=== PATIENT | male | born 1960 | race African-American/Black ===

== ENCOUNTER 2016-06-23 01:03 | Emergency (ER) | payer MEDICAID, OTHER ==
[~2016-06-23] VITALS: Ht 170.2 cm; Wt 77.1 kg
[2016-06-23] VITALS (10 sets, daily range): BP systolic 138–170; BP diastolic 83–99
[~2016-06-23 01:03] MED LIST: QUETIAPINE FUMA25 MG ORAL
[2016-06-23 01:38] LABS: BASOPHILS % (AUTO) 1.4 % (0.0-2.0); EOSINOPHILS % (AUTO) 3.3 % (0.0-3.0); LYMPHOCYTES % (AUTO) 31.8 % (20.0-45.0); MEAN CORPUSCULAR HEMOGLOBIN 25.5 PG (27.0-31.0); MEAN CORPUSCULAR HGB CONC 32.2 G/DL (32.0-36.0); MEAN CORPUSCULAR VOLUME 79 FL (80-99); MONOCYTES % (AUTO) 7.4 % (1.0-10.0); NEUTROPHILS % (AUTO) 56.2 % (45.0-75.0); PLATELET COUNT 261 K/UL (150-450); RED BLOOD COUNT 5.51 M/UL (4.70-6.10); RED CELL DISTRIBUTION WIDTH 14.9 % (11.6-14.8); WHITE BLOOD COUNT 8.1 K/UL (4.8-10.8)
[2016-06-23 01:57] LABS: ACETAMINOPHEN < 10 ug/mL (10-30); ALANINE AMINOTRANSFERASE 16 U/L (3-41); ALBUMIN/GLOBULIN RATIO 0.9 (1.0-2.7); ALCOHOL 313 mg/dL; ANION GAP 18 (5-15); ASPARTATE AMINO TRANSFERASE 29 U/L (5-40); CALCIUM 8.9 mg/dL (8.6-10.2); CARBON DIOXIDE 25 mEQ/L (20-30); CHLORIDE 100 mEQ/L (98-107); GLOMERULAR FILTRATION RATE > 60 mL/min (>60); HEMOLYSIS 4; POTASSIUM 3.7 mEQ/L (3.4-4.9); SODIUM 143 mEQ/L (135-145); TOTAL PROTEIN 7.8 g/dL (6.6-8.7)
[2016-06-23] MEDS ORDERED: Thiamine 100mg tab ORAL ONE (02:00)
--- NOTE | 2016-06-23 02:40 | Emergency Room Report ---
History of Present Illness General Chief Complaint: Behavioral Complaint Source: Patient (Arnie Jordan) Present Illness HPI Patient is a 56-year-old male who presented after having increased suicidal thoughts. Patient stated that he had been drinking several 24 ounce beers as well as several shots of alcohol. The patient states that he last ingested alcohol approximately one hour prior to arrival. Patient denied any current complaints other than this. (Arnie Jordan) Allergies: Coded Allergies: No Known Allergies (Unverified , 03/13/14) Patient History Past Medical History: see triage record Reviewed Nursing Documentation: PMH: Agreed, PSxH: Agreed (Arnie Jordan) Nursing Documentation-PMH Hx Hypertension: Yes History Of Psychiatric Problem: Yes - BIPOLAR (Arnie Jordan) Review of Systems All Other Systems: negative except mentioned in HPI (Arnie Jordan) Physical Exam Vital Signs Date Time Temp Pulse Resp B/P Pulse Ox O2 Delivery O2 Flow Rate FiO2 06/23/16 01:06 98.4 103 16 147/91 99 Room Air Sp02 EP Interpretation: reviewed, normal General Appearance: normal inspection, well appearing, no apparent distress, alert, GCS 15, non-toxic Head: atraumatic ENT: normal ENT inspection, hearing grossly normal, normal voice Neck: normal inspection, full range of motion, supple, no bony tend Respiratory: normal inspection, lungs clear, normal breath sounds, no respiratory distress, no retraction, no wheezing Cardiovascular #1: regular rate, rhythm, no edema Gastrointestinal: normal inspection, normal bowel sounds, non tender, soft, no guarding, no hernia Genitourinary: no CVA tenderness Musculoskeletal: normal inspection, back normal, normal range of motion Neurologic: normal inspection, alert, oriented x3, responsive, bag end sewer III-XII nml as tested, other - slurred speech Psychiatric: normal inspection, judgement/insight normal, mood/affect normal Skin: normal inspection, normal color, no rash (Arnie Jordan) Medical Decision Making Diagnostic Impression: Primary Impression: Alcohol intoxication Additional Impressions: Cocaine abuse Behavioral disorder ER Course Patient presented for suicidal thoughts. Differential diagnosis included but was not limited to psychosis, intracranial mass, substance abuse, alcohol withdrawal, overdose. Because of complexity of patient's case laboratory testing and imaging studies were ordered. Patient appears to be moderately intoxicated with alcohol. The patient does not appear to be any threat to himself at this time. The patient was given oral Zyprexa for agitation. The blood alcohol was noted be markedly elevated. The patient will be reevaluated after sober. Labs Test 06/23/16 01:19 06/23/16 02:00 White Blood Count 8.1 K/UL (4.8-10.8) Red Blood Count 5.51 M/UL (4.70-6.10) Hemoglobin 14.0 G/DL (14.2-18.0) Hematocrit 43.5 % (42.0-52.0) Mean Corpuscular Volume 79 FL (80-99) Mean Corpuscular Hemoglobin 25.5 PG (27.0-31.0) Mean Corpuscular Hemoglobin Concent 32.2 G/DL (32.0-36.0) Red Cell Distribution Width 14.9 % (11.6-14.8) Platelet Count 261 K/UL (150-450) Mean Platelet Volume 7.0 FL (6.5-10.1) Neutrophils (%) (Auto) 56.2 % (45.0-75.0) Lymphocytes (%) (Auto) 31.8 % (20.0-45.0) Monocytes (%) (Auto) 7.4 % (1.0-10.0) Eosinophils (%) (Auto) 3.3 % (0.0-3.0) Basophils (%) (Auto) 1.4 % (0.0-2.0) Sodium Level 143 mEQ/L (135-145) Potassium Level 3.7 mEQ/L (3.4-4.9) Chloride Level 100 mEQ/L (98-107) Carbon Dioxide Level 25 mEQ/L (20-30) Anion Gap 18 (5-15) Blood Urea Nitrogen 9 mg/dL (7-23) Creatinine 1.0 mg/dL (0.7-1.2) Estimat Glomerular Filtration Rate > 60 mL/min (>60) Glucose Level 105 mg/dL (74-106) Calcium Level 8.9 mg/dL (8.6-10.2) Total Bilirubin 0.3 mg/dL (0.0-1.2) Aspartate Amino Transf (AST/SGOT) 29 U/L (5-40) Alanine Aminotransferase (ALT/SGPT) 16 U/L (3-41) Alkaline Phosphatase 88 U/L (40-129) Total Protein 7.8 g/dL (6.6-8.7) Albumin 3.8 g/dL (3.5-5.2) Globulin 4.0 g/dL Albumin/Globulin Ratio 0.9 (1.0-2.7) Salicylates Level < 1 mg/dL (10-30) Acetaminophen Level < 10 ug/mL (10-30) Serum Alcohol 313 mg/dL Urine Opiates Screen Negative (NEGATIVE) Urine Barbiturates Screen Negative (NEGATIVE) Phencyclidine (PCP) Screen Negative (NEGATIVE) Urine Amphetamines Screen Negative (NEGATIVE) Urine Benzodiazepines Screen Negative (NEGATIVE) Urine Cocaine Screen Positive (NEGATIVE) Urine Marijuana (THC) Screen Negative (NEGATIVE) (Arnie Jordan) ER Course After a prolonged stay in the emergency room Patient was accepted by a psychiatric facility for further psychiatric care and evaluation Patient remained stable throughout his stay Labs Test 06/23/16 01:19 06/23/16 02:00 06/23/16 13:23 White Blood Count 8.1 K/UL (4.8-10.8) Red Blood Count 5.51 M/UL (4.70-6.10) Hemoglobin 14.0 G/DL (14.2-18.0) Hematocrit 43.5 % (42.0-52.0) Mean Corpuscular Volume 79 FL (80-99) Mean Corpuscular Hemoglobin 25.5 PG (27.0-31.0) Mean Corpuscular Hemoglobin Concent 32.2 G/DL (32.0-36.0) Red Cell Distribution Width 14.9 % (11.6-14.8) Platelet Count 261 K/UL (150-450) Mean Platelet Volume 7.0 FL (6.5-10.1) Neutrophils (%) (Auto) 56.2 % (45.0-75.0) Lymphocytes (%) (Auto) 31.8 % (20.0-45.0) Monocytes (%) (Auto) 7.4 % (1.0-10.0) Eosinophils (%) (Auto) 3.3 % (0.0-3.0) Basophils (%) (Auto) 1.4 % (0.0-2.0) Sodium Level 143 mEQ/L (135-145) Potassium Level 3.7 mEQ/L (3.4-4.9) Chloride Level 100 mEQ/L (98-107) Carbon Dioxide Level 25 mEQ/L (20-30) Anion Gap 18 (5-15) Blood Urea Nitrogen 9 mg/dL (7-23) Creatinine 1.0 mg/dL (0.7-1.2) Estimat Glomerular Filtration Rate > 60 mL/min (>60) Glucose Level 105 mg/dL (74-106) Calcium Level 8.9 mg/dL (8.6-10.2) Total Bilirubin 0.3 mg/dL (0.0-1.2) Aspartate Amino Transf (AST/SGOT) 29 U/L (5-40) Alanine Aminotransferase (ALT/SGPT) 16 U/L (3-41) Alkaline Phosphatase 88 U/L (40-129) Total Protein 7.8 g/dL (6.6-8.7) Albumin 3.8 g/dL (3.5-5.2) Globulin 4.0 g/dL Albumin/Globulin Ratio 0.9 (1.0-2.7) Salicylates Level < 1 mg/dL (10-30) Acetaminophen Level < 10 ug/mL (10-30) Serum Alcohol 313 mg/dL < 10 mg/dL Urine Opiates Screen Negative (NEGATIVE) Urine Barbiturates Screen Negative (NEGATIVE) Phencyclidine (PCP) Screen Negative (NEGATIVE) Urine Amphetamines Screen Negative (NEGATIVE) Urine Benzodiazepines Screen Negative (NEGATIVE) Urine Cocaine Screen Positive (NEGATIVE) Urine Marijuana (THC) Screen Negative (NEGATIVE) (VERONICA MARTINEZ.oJse) Last Vital Signs Date Time Temp Pulse Resp B/P Pulse Ox O2 Delivery O2 Flow Rate FiO2 06/23/16 01:25 98.4 102 16 145/90 99 Room Air Status: improved (Arnie Jordan) Status: improved (VERONICA MARTINEZ D.O.) Disposition: DISC/XFER TO A [facility] Condition: Stable Referrals: [facility],REFERRING (PCP) Arnie Jordan Jun 23, 2016 02:40 VERONICA MARTINEZ D.O. Jun 24, 2016 13:59
[2016-06-24 05:20] VITALS: BP 161/100
[2016-06-24 10:02] VITALS: BP 165/73
[2016-06-24 14:13] VITALS: BP 162/73
[2016-06-24 16:10] VITALS: BP 162/73
== END 2016-06-24 16:11 ==
LOC: EDBD 01:03 → EDUNIT# 01:03 → EMR 01:17 → CANBEDREQ 12:57 → EMR 06-24 16:11
DX: F10.129 Alcohol abuse with intoxication, unspecified (principal); R45.851 Suicidal ideations; F14.10 Cocaine abuse, uncomplicated; F91.9 Conduct disorder, unspecified; I10 Essential (primary) hypertension; F31.9 Bipolar disorder, unspecified
CPT/HCPCS: 36415; 80053; 80300; 80329; 85025; 99283

== ENCOUNTER 2016-11-26 11:03 | Emergency (ER) | payer OTHER ==
[~2016-11-26] VITALS: Ht 172.7 cm; Wt 79.4 kg
[2016-11-26 11:25] VITALS: BP 146/99
[2016-11-26] MEDS ORDERED: QUEtiapine 200mg tab ORAL ONE (12:15)
--- NOTE | 2016-11-26 12:20 | Emergency Room Report ---
History of Present Illness General Chief Complaint: Behavioral Complaint Source: Patient Present Illness HPI The patient is a 56 old male with a history of schizophrenia and bipolar disorder resenting for suicidal ideation. Patient states that he ran out of Cinnamon yesterday and has been having thoughts of suicide. He states that he wants to run in front of a car. He has had these thoughts in the past. He denies any other symptoms at this time. Allergies: Coded Allergies: No Known Allergies (Unverified , 03/13/14) Patient History Past Medical History: psych hx Reviewed Nursing Documentation: PMH: Agreed, PSxH: Agreed Nursing Documentation-PM Past Medical History: No History, Except For Hx Hypertension: Yes History Of Psychiatric Problem: Yes - schizophrenia, bipolar Review of Systems All Other Systems: negative except mentioned in HPI Physical Exam Vital Signs Date Time Temp Pulse Resp B/P Pulse Ox O2 Delivery O2 Flow Rate FiO2 11/26/16 11:07 98.1 90 18 149/105 98 Room Air Sp02 EP Interpretation: reviewed, normal General Appearance: no apparent distress, alert, GCS 15, non-toxic Head: normocephalic, atraumatic Eyes: bilateral eye PERRL, bilateral eye normal inspection ENT: hearing grossly normal, normal pharynx, no angioedema, normal voice Neck: full range of motion, supple/symm/no masses Respiratory: chest non-tender, lungs clear, normal breath sounds, speaking full sentences Cardiovascular #1: regular rate, rhythm, no edema Gastrointestinal: normal bowel sounds, non tender, soft, non-distended, no guarding, no rebound Musculoskeletal: back normal, gait/station normal, normal range of motion, non- tender Neurologic: alert, oriented x3, responsive, motor strength/tone normal, sensory intact, speech normal Psychiatric: judgement/insight normal, memory normal, mood/affect normal Skin: other - scars on bilat forearms Lymphatic: no adenopathy Medical Decision Making PA Attestation Dr. Zapata is my supervising physician. Patient management was discussed with my supervising physician Diagnostic Impression: Primary Impression: Schizophrenia Qualified Codes: F20.9 - Schizophrenia, unspecified Additional Impression: Bipolar disorder Qualified Codes: F31.9 - Bipolar disorder, unspecified ER Course The patient is a 56 old male with a history of schizophrenia and bipolar disorder resenting for suicidal ideation Differential diagnoses considered but not limited to suicidal ideation, homicidal ideation, depression, psychosis, among others PE: HTN. otherwise vitals WNL. NAD Resting in bed. A&Ox4. RRR. Lungs CTA bilat Abd is soft and non tender. There are scars of bilat forearms. The patient is asking for a hot meal which was provided. All blood work unremarkable. pt is medically cleared. Dr. Jameson (psychiatry) has arrived in the ER and has evaluated the patient. He is deemed to not be a danger to himself. The patient will be IL'ed in stable condition and is given a refill of Seroquel. He needs to FU with psychiatry as soon as possible Laboratory Tests Test 11/26/16 12:30 White Blood Count 9.3 K/UL (4.8-10.8) Red Blood Count 5.77 M/UL (4.70-6.10) Hemoglobin 14.1 G/DL (14.2-18.0) L Hematocrit 46.0 % (42.0-52.0) Mean Corpuscular Volume 80 FL (80-99) Mean Corpuscular Hemoglobin 24.5 PG (27.0-31.0) L Mean Corpuscular Hemoglobin Concent 30.7 G/DL (32.0-36.0) L Red Cell Distribution Width 14.0 % (11.6-14.8) Platelet Count 297 K/UL (150-450) Mean Platelet Volume 8.0 FL (6.5-10.1) Neutrophils (%) (Auto) 66.9 % (45.0-75.0) Lymphocytes (%) (Auto) 22.6 % (20.0-45.0) Monocytes (%) (Auto) 6.9 % (1.0-10.0) Eosinophils (%) (Auto) 1.7 % (0.0-3.0) Basophils (%) (Auto) 1.8 % (0.0-2.0) Sodium Level 136 mEQ/L (135-145) Potassium Level 3.9 mEQ/L (3.4-4.9) Chloride Level 100 mEQ/L (98-107) Carbon Dioxide Level 26 mEQ/L (20-30) Anion Gap 10 (5-15) Blood Urea Nitrogen 8 mg/dL (7-23) Creatinine 0.8 mg/dL (0.7-1.2) Estimate Glomerular Filtration Rate > 60 mL/min (>60) Glucose Level 83 mg/dL (74-106) Calcium Level 9.1 mg/dL (8.6-10.2) Total Bilirubin 0.5 mg/dL (0.0-1.2) Aspartate Amino Transferase (AST) 12 U/L (5-40) Alanine Aminotransferase (ALT) 10 U/L (3-41) Alkaline Phosphatase 71 U/L (40-129) Total Protein 7.3 g/dL (6.6-8.7) Albumin 3.7 g/dL (3.5-5.2) Globulin 3.6 g/dL Albumin/Globulin Ratio 1.0 (1.0-2.7) Salicylates Level < 1 mg/dL (10-30) L Urine Opiates Screen Negative (NEGATIVE) Acetaminophen Level < 10 ug/mL (10-30) L Urine Barbiturates Screen Negative (NEGATIVE) Phencyclidine (PCP) Screen Negative (NEGATIVE) Urine Amphetamines Screen Negative (NEGATIVE) Urine Benzodiazepines Screen Negative (NEGATIVE) Urine Cocaine Screen Negative (NEGATIVE) Urine Marijuana (THC) Screen Negative (NEGATIVE) Serum Alcohol < 10 mg/dL Lab Results Impression All unremarkable Last Vital Signs Date Time Temp Pulse Resp B/P Pulse Ox O2 Delivery O2 Flow Rate FiO2 11/26/16 11:25 98.2 87 17 146/99 98 Room Air Status: improved Disposition: HOME, SELF-CARE Condition: Stable Scripts Quetiapine Fumarate (SEROQUEL) 300 Mg Tablet 300 MG ORAL DAILY, #30 TAB Prov: GARRETT CHEN 11/26/16 Referrals: [facility],REFERRING (PCP) GARRETT CHEN Nov 26, 2016 12:20
[2016-11-26 12:58] LABS: BASOPHILS % (AUTO) 1.8 % (0.0-2.0); EOSINOPHILS % (AUTO) 1.7 % (0.0-3.0); LYMPHOCYTES % (AUTO) 22.6 % (20.0-45.0); MEAN CORPUSCULAR HEMOGLOBIN 24.5 PG (27.0-31.0); MEAN CORPUSCULAR HGB CONC 30.7 G/DL (32.0-36.0); MEAN CORPUSCULAR VOLUME 80 FL (80-99); MONOCYTES % (AUTO) 6.9 % (1.0-10.0); NEUTROPHILS % (AUTO) 66.9 % (45.0-75.0); PLATELET COUNT 297 K/UL (150-450); RED BLOOD COUNT 5.77 M/UL (4.70-6.10); WHITE BLOOD COUNT 9.3 K/UL (4.8-10.8)
[2016-11-26 13:08] LABS: ACETAMINOPHEN < 10 ug/mL (10-30); ALANINE AMINOTRANSFERASE 10 U/L (3-41); ALCOHOL < 10 mg/dL; ANION GAP 10 (5-15); ASPARTATE AMINO TRANSFERASE 12 U/L (5-40); CALCIUM 9.1 mg/dL (8.6-10.2); CARBON DIOXIDE 26 mEQ/L (20-30); CHLORIDE 100 mEQ/L (98-107); CREATININE 0.8 mg/dL (0.7-1.2); GLOMERULAR FILTRATION RATE > 60 mL/min (>60); HEMOLYSIS 9; POTASSIUM 3.9 mEQ/L (3.4-4.9); SODIUM 136 mEQ/L (135-145); TOTAL PROTEIN 7.3 g/dL (6.6-8.7)
[2016-11-26] MEDS ORDERED: SEROQUEL300 MG ORAL (13:40)
--- NOTE | 2016-11-26 14:18 | Consultation ---
History of Present Illness General Chief Complaint: Behavioral Complaint Present Illness HPI 56 old male with a history of schizophrenia and bipolar disorder came to er with suicidal ideation. Patient states that he ran out of Seroquel yesterday and has been having thoughts of suicide. when I entered the room he was surfing internet. The pt was focused on his elbow wound and housing issue. the pt reluctant to go to the housing that our sw found for him. the pt c/o depressive sxs however his affect is full range. he is not anxious. He stopped using alcohol 2 weeks ago. He stated to me that he still has his psych meds however told er doc he ran out of seroquel yesterday. He is not having psychotic sxs. his daughter is supportive. no recent loss/break up Allergies: Coded Allergies: No Known Allergies (Unverified , 03/13/14) Medication History Scheduled Quetiapine Fumarate (Seroquel), 300 MG ORAL DAILY Quetiapine Fumarate* (Seroquel*), 25 MG ORAL DAILY, (Reported) Patient History History Provided By: Patient, Medical Record, PMD Healthcare decision maker Resuscitation status Advanced Directive on File Family History Family History: (1) Behavioral change (2) Medical clearance for psychiatric admission (3) Schizophrenia (4) Bipolar disorder Review of Systems Psychiatric: Reports: SI, prior hx Physical Exam General Appearance: no apparent distress, alert Neurologic: alert, oriented x 3, responsive, normal mood/affect Last 24 Hour Vital Signs Date Time Temp Pulse Resp B/P Pulse Ox O2 Delivery O2 Flow Rate FiO2 11/26/16 11:25 98.2 87 17 146/99 98 Room Air 11/26/16 11:07 98.1 90 18 149/105 98 Room Air Laboratory Tests Test 11/26/16 12:30 White Blood Count 9.3 K/UL (4.8-10.8) Red Blood Count 5.77 M/UL (4.70-6.10) Hemoglobin 14.1 G/DL (14.2-18.0) L Hematocrit 46.0 % (42.0-52.0) Mean Corpuscular Volume 80 FL (80-99) Mean Corpuscular Hemoglobin 24.5 PG (27.0-31.0) L Mean Corpuscular Hemoglobin Concent 30.7 G/DL (32.0-36.0) L Red Cell Distribution Width 14.0 % (11.6-14.8) Platelet Count 297 K/UL (150-450) Mean Platelet Volume 8.0 FL (6.5-10.1) Neutrophils (%) (Auto) 66.9 % (45.0-75.0) Lymphocytes (%) (Auto) 22.6 % (20.0-45.0) Monocytes (%) (Auto) 6.9 % (1.0-10.0) Eosinophils (%) (Auto) 1.7 % (0.0-3.0) Basophils (%) (Auto) 1.8 % (0.0-2.0) Sodium Level 136 mEQ/L (135-145) Potassium Level 3.9 mEQ/L (3.4-4.9) Chloride Level 100 mEQ/L (98-107) Carbon Dioxide Level 26 mEQ/L (20-30) Anion Gap 10 (5-15) Blood Urea Nitrogen 8 mg/dL (7-23) Creatinine 0.8 mg/dL (0.7-1.2) Estimat Glomerular Filtration Rate > 60 mL/min (>60) Glucose Level 83 mg/dL (74-106) Calcium Level 9.1 mg/dL (8.6-10.2) Total Bilirubin 0.5 mg/dL (0.0-1.2) Aspartate Amino Transf (AST/SGOT) 12 U/L (5-40) Alanine Aminotransferase (ALT/SGPT) 10 U/L (3-41) Alkaline Phosphatase 71 U/L (40-129) Total Protein 7.3 g/dL (6.6-8.7) Albumin 3.7 g/dL (3.5-5.2) Globulin 3.6 g/dL Albumin/Globulin Ratio 1.0 (1.0-2.7) Salicylates Level < 1 mg/dL (10-30) L Urine Opiates Screen Negative (NEGATIVE) Acetaminophen Level < 10 ug/mL (10-30) L Urine Barbiturates Screen Negative (NEGATIVE) Phencyclidine (PCP) Screen Negative (NEGATIVE) Urine Amphetamines Screen Negative (NEGATIVE) Urine Benzodiazepines Screen Negative (NEGATIVE) Urine Cocaine Screen Negative (NEGATIVE) Urine Marijuana (THC) Screen Negative (NEGATIVE) Serum Alcohol < 10 mg/dL Height (Feet): 5 Height (Inches): 8.00 Weight (Pounds): 175 Assessment/Plan Status: doing well, stable Assessment/Plan the pt is not at imminent dts/tdo. he is focused on his elbow wound, usually a person with si would not care about his wound and would appear stressed out/ anxious/depressed. The pt is not at imminent dts and doesn't meet the criteria for 5150 or psych galvin. Ranjana Jameson M.D. Nov 26, 2016 14:18
--- NOTE | 2016-11-26 14:36 | Consultation ---
History of Present Illness General Chief Complaint: Behavioral Complaint Present Illness HPI 56 old male with a history of schizophrenia and bipolar disorder resenting for suicidal ideation. the pt asked if he could order take outs [facility] [place]. the pt didn't elaborate when I was asking about si, he stated that he goes to [facility]. he called the intake and "Gale told me to go to [place] and have them call us. he said, Gale said I must be suicidal to get transferred." the pt was uncooperative and was asking for "warm meal". His affect was not anxious or depressed and he didn't endorse psychotic or manic sxs. he denied using drugs or alcohol. Allergies: Coded Allergies: No Known Allergies (Unverified , 03/13/14) Medication History Scheduled Quetiapine Fumarate (Seroquel), 300 MG ORAL DAILY Quetiapine Fumarate* (Seroquel*), 25 MG ORAL DAILY, (Reported) Patient History History Provided By: Patient, Medical Record, PMD Healthcare decision maker Resuscitation status Advanced Directive on File Review of Systems Psychiatric: Reports: SI, prior hx All Other Systems: negative except mentioned in HPI Physical Exam General Appearance: no apparent distress, alert Neurologic: alert, oriented x 3, responsive, normal mood/affect Last 24 Hour Vital Signs Date Time Temp Pulse Resp B/P Pulse Ox O2 Delivery O2 Flow Rate FiO2 11/26/16 11:25 98.2 87 17 146/99 98 Room Air 11/26/16 11:07 98.1 90 18 149/105 98 Room Air Laboratory Tests Test 11/26/16 12:30 White Blood Count 9.3 K/UL (4.8-10.8) Red Blood Count 5.77 M/UL (4.70-6.10) Hemoglobin 14.1 G/DL (14.2-18.0) L Hematocrit 46.0 % (42.0-52.0) Mean Corpuscular Volume 80 FL (80-99) Mean Corpuscular Hemoglobin 24.5 PG (27.0-31.0) L Mean Corpuscular Hemoglobin Concent 30.7 G/DL (32.0-36.0) L Red Cell Distribution Width 14.0 % (11.6-14.8) Platelet Count 297 K/UL (150-450) Mean Platelet Volume 8.0 FL (6.5-10.1) Neutrophils (%) (Auto) 66.9 % (45.0-75.0) Lymphocytes (%) (Auto) 22.6 % (20.0-45.0) Monocytes (%) (Auto) 6.9 % (1.0-10.0) Eosinophils (%) (Auto) 1.7 % (0.0-3.0) Basophils (%) (Auto) 1.8 % (0.0-2.0) Sodium Level 136 mEQ/L (135-145) Potassium Level 3.9 mEQ/L (3.4-4.9) Chloride Level 100 mEQ/L (98-107) Carbon Dioxide Level 26 mEQ/L (20-30) Anion Gap 10 (5-15) Blood Urea Nitrogen 8 mg/dL (7-23) Creatinine 0.8 mg/dL (0.7-1.2) Estimat Glomerular Filtration Rate > 60 mL/min (>60) Glucose Level 83 mg/dL (74-106) Calcium Level 9.1 mg/dL (8.6-10.2) Total Bilirubin 0.5 mg/dL (0.0-1.2) Aspartate Amino Transf (AST/SGOT) 12 U/L (5-40) Alanine Aminotransferase (ALT/SGPT) 10 U/L (3-41) Alkaline Phosphatase 71 U/L (40-129) Total Protein 7.3 g/dL (6.6-8.7) Albumin 3.7 g/dL (3.5-5.2) Globulin 3.6 g/dL Albumin/Globulin Ratio 1.0 (1.0-2.7) Salicylates Level < 1 mg/dL (10-30) L Urine Opiates Screen Negative (NEGATIVE) Acetaminophen Level < 10 ug/mL (10-30) L Urine Barbiturates Screen Negative (NEGATIVE) Phencyclidine (PCP) Screen Negative (NEGATIVE) Urine Amphetamines Screen Negative (NEGATIVE) Urine Benzodiazepines Screen Negative (NEGATIVE) Urine Cocaine Screen Negative (NEGATIVE) Urine Marijuana (THC) Screen Negative (NEGATIVE) Serum Alcohol < 10 mg/dL Height (Feet): 5 Height (Inches): 8.00 Weight (Pounds): 175 Assessment/Plan Assessment/Plan the pt is not at imminent dts/tdo. he is focused on "warm food" , he didn't appear anxious/depressed and would get irritable when I was asking questions. the pt also refused housing found by our sw. The pt is not at imminent dts and doesn't meet the criteria for 5150 or psych galvin. Ranjana Jameson M.D. Nov 26, 2016 14:36
[2016-11-26 14:57] VITALS: BP_SYST 141; BP_SYST 146; BP_DIAS 96; BP_DIAS 99
--- NOTE | 2016-11-28 16:52 | Cardiology Report ---
APPROVED REPORT EKG Measurement Heart [id number] Sinus rhythm with 1st degree AV block Otherwise normal ECG
== END 2016-11-26 14:59 | disposition home or self-care (01) ==
LOC: EMR 11:45
DX: F20.9 Schizophrenia, unspecified (principal); F31.9 Bipolar disorder, unspecified; I10 Essential (primary) hypertension
CPT/HCPCS: 36415; 80053; 80300; 80329; 85025; 93005; 99283

== ENCOUNTER 2017-07-06 00:57 | Emergency (ER) | payer OTHER ==
[~2017-07-06] VITALS: Ht 170.2 cm; Wt 86.2 kg
[~2017-07-06 00:57] MED LIST changes: +SEROQUEL300 MG ORAL
[2017-07-06] MEDS ORDERED: QUETIAPINE FUMA25 MG ORAL (01:01)
[2017-07-06 01:07] VITALS: BP 150/90
--- NOTE | 2017-07-06 01:43 | Emergency Room Report ---
History of Present Illness General Chief Complaint: Dizziness Source: Patient, Medical Record, EMS Present Illness HPI This 57-year-old male who has a psychiatric history but noncompliance with his medication. He has also has history of alcohol abuse. He [address] because he said he felt dizzy. He said his been ongoing problem for 4 months. Denied suicidal thought homicidal thought. Said he was drinking alcohol but no drug use. Positive for cocaine in the past. He said that he had falling out 4 times her ready but unknown when this happened. Said his car once yesterday. Denies any fever chills denies any palpitation. No other complaint. Allergies: Coded Allergies: No Known Allergies (Unverified , 03/13/14) Patient History Past Medical History: see triage record, old chart reviewed, psych hx Past Surgical History: none Pertinent Family History: none Social History: Reports: alcohol use Immunizations: other Reviewed Nursing Documentation: PMH: Agreed, PSxH: Agreed Nursing Documentation-PMH Hx Hypertension: Yes Review of Systems Eye: Denies: eye pain, blurred vision ENT: Denies: ear pain, nose congestion, throat swelling Respiratory: Denies: cough, shortness of breath Cardiovascular: Denies: chest pain, palpitations Gastrointestinal: Denies: abdominal pain, diarrhea, nausea, vomiting Musculoskeletal: Denies: back pain, joint pain Skin: Denies: rash Neurological: Denies: headache, numbness Endocrine: Denies: increased thirst, increased urine Hematologic/Lymphatic: Denies: easy bruising All Other Systems: negative except mentioned in HPI Physical Exam Vital Signs Date Time Temp Pulse Resp B/P (MAP) Pulse Ox O2 Delivery O2 Flow Rate FiO2 07/06/17 00:56 97.5 73 18 150/93 98 Room Air 97.5 vitals are high blood pressure Sp02 EP Interpretation: reviewed, normal General Appearance: well appearing, no apparent distress, alert, other - Intoxicated Head: normocephalic, atraumatic Eyes: bilateral eye PERRL, bilateral eye EOMI ENT: hearing grossly normal, normal pharynx Neck: full range of motion, supple, no meningismus Respiratory: chest non-tender, lungs clear, normal breath sounds Cardiovascular #1: regular rate, rhythm, no murmur Gastrointestinal: normal bowel sounds, non tender, no mass, no organomegaly, no bruit, non-distended Musculoskeletal: back normal, normal range of motion Psychiatric: mood/affect normal Skin: warm/dry Medical Decision Making Diagnostic Impression: Primary Impression: Dizziness Additional Impression: Alcohol intoxication Qualified Codes: F10.920 - Alcohol use, unspecified with intoxication, uncomplicated ER Course Patient presents with dizziness and "falling out." He is no trauma. CT scan negative. Most likely due to alcohol intoxication. His heart rate and rhythm has been normal since his been here. Will discharge once he is more clinically sober. Last Vital Signs Date Time Temp Pulse Resp B/P (MAP) Pulse Ox O2 Delivery O2 Flow Rate FiO2 07/06/17 01:07 97.5 83 16 150/90 99 Room Air 97.5 Status: improved Disposition: HOME, SELF-CARE Condition: Stable Additional Instructions: Stop using alcohol and drugs. Followup with your Dr. in 7 days. Go to rehabilitation. Return if worse. SHANTA SCRUGGS M.D. Jul 06, 2017 01:43
[2017-07-06 04:43] VITALS: BP 118/75
[2017-07-06 05:35] VITALS: BP 118/75
--- NOTE | 2017-07-06 07:55 | Diagnostic Imaging Report ---
Indication: Dizziness Technique: Continuous helical CT scanning of the head was performed without intravenous contrast material. Axial and coronal 5 mm sections were generated. Dose: Total Dose Length Product - DLP [address] Dose Index - CTDIvol(s) 70.38 mGy. Automated exposure control was utilized for dose reduction. Comparison: None Findings: There is mild prominence of cortical sulci. Ventricles are normal. There is no shift of midline structures. No abnormal extra-axial fluid collections are noted. There is no evidence of intracerebral bleeding. No other abnormal high or low density areas are noted within the brain. There is some opacification of ethmoid sinuses. Polyp is seen in the left maxillary sinus. Impression: Minimal atrophy. Left maxillary sinus because retention cyst or polyp. Minimal mucoperiosteal thickening in the ethmoid sinuses. No acute intracranial abnormality. The above report is concordant with preliminary reading by [employer] . The CT scanner at [facility] is accredited by the [employer] and the scans are performed using protocols designed to limit radiation exposure to as low as reasonably achievable to attain images of sufficient resolution adequate for diagnostic evaluation.
== END 2017-07-06 05:35 | disposition home or self-care (01) ==
LOC: EDBD 00:57 → EMR 03:19
DX: R42 Dizziness and giddiness (principal); F10.129 Alcohol abuse with intoxication, unspecified; I10 Essential (primary) hypertension
CPT/HCPCS: 70450; 99284

== ENCOUNTER 2018-06-14 00:32 | Emergency (ER) | payer OTHER ==
[~2018-06-14] VITALS: Ht 170.2 cm; Wt 81.6 kg
[2018-06-14 00:49] VITALS: BP 148/96
[2018-06-14 01:23] LABS: BASOPHILS % (AUTO) 1.8 % (0.0-2.0); HEMATOCRIT 40.4 % (42.0-52.0); HEMOGLOBIN 13.1 G/DL (14.2-18.0); LYMPHOCYTES % (AUTO) 33.6 % (20.0-45.0); MEAN CORPUSCULAR VOLUME 80 FL (80-99); NEUTROPHILS % (AUTO) 52.7 % (45.0-75.0); PLATELET COUNT 170 K/UL (150-450); RED BLOOD COUNT 5.07 M/UL (4.70-6.10); RED CELL DISTRIBUTION WIDTH 16.4 % (11.6-14.8); WHITE BLOOD COUNT 6.7 K/UL (4.8-10.8)
[2018-06-14 01:37] LABS: ALANINE AMINOTRANSFERASE 48 U/L (12-78); ALBUMIN 3.4 G/DL (3.4-5.0); ALBUMIN/GLOBULIN RATIO 0.8 (1.0-2.7); ALKALINE PHOSPHATASE 86 U/L (46-116); ANION GAP 11 mmol/L (5-15); ASPARTATE AMINO TRANSFERASE 69 U/L (15-37); BILIRUBIN,TOTAL 0.9 MG/DL (0.2-1.0); BLOOD UREA NITROGEN 6 mg/dL (7-18); CALCIUM 8.4 MG/DL (8.5-10.1); CARBON DIOXIDE 27 MMOL/L (21-32); CHLORIDE 104 MMOL/L (98-107); CREATININE 0.9 MG/DL (0.55-1.30); POTASSIUM 3.6 MMOL/L (3.5-5.1); SODIUM 142 MMOL/L (136-145)
[2018-06-14] MEDS ORDERED: SEROQUEL300 MG ORAL (03:40)
--- NOTE | 2018-06-14 03:41 | Emergency Room Report ---
History of Present Illness General Chief Complaint: Behavioral Complaint Source: Patient, Medical Record, EMS Present Illness HPI Is a 58-year-old male with a history hypertension and alcohol abuse. He presents with chief complaint of feeling depressed and suicidal. No particular plan. He denies any nausea vomiting. Miss to drinking tonight. Denies any drug use. Said that he called EMS because he had chest pain. Then he had abdominal pain. Then complaining of being suicidal. Said that he is out of his Seroquel the last 3 days. Allergies: Coded Allergies: No Known Allergies (Unverified , 03/13/14) Patient History Past Medical History: see triage record, old chart reviewed, HTN Past Surgical History: other Pertinent Family History: none Social History: Reports: alcohol use; Denies: smoking Immunizations: other Reviewed Nursing Documentation: PMH: Agreed; PSxH: Agreed Nursing Documentation-PMH Hx Hypertension: Yes Review of Systems Eye: Denies: eye pain, blurred vision ENT: Denies: ear pain, nose congestion, throat swelling Respiratory: Denies: cough, shortness of breath Cardiovascular: Denies: chest pain, palpitations Gastrointestinal: Denies: abdominal pain, diarrhea, nausea, vomiting Musculoskeletal: Denies: back pain, joint pain Skin: Denies: rash Neurological: Denies: headache, numbness Endocrine: Denies: increased thirst, increased urine Hematologic/Lymphatic: Denies: easy bruising All Other Systems: negative except mentioned in HPI Physical Exam Vital Signs Date Time Temp Pulse Resp B/P (MAP) Pulse Ox O2 Delivery O2 Flow Rate FiO2 06/14/18 00:35 98.1 84 16 148/96 98 Room Air vitals normal Sp02 EP Interpretation: reviewed, normal General Appearance: well appearing, no apparent distress, alert Head: normocephalic, atraumatic Eyes: bilateral eye PERRL, bilateral eye EOMI ENT: hearing grossly normal, normal pharynx Neck: full range of motion, supple, no meningismus Respiratory: chest non-tender, lungs clear, normal breath sounds Cardiovascular #1: regular rate, rhythm, no murmur Gastrointestinal: normal bowel sounds, non tender, no mass, no organomegaly, no bruit, non-distended Musculoskeletal: back normal, gait/station normal, normal range of motion Psychiatric: mood/affect normal Skin: warm/dry Medical Decision Making Diagnostic Impression: Primary Impression: Alcohol intoxication Qualified Codes: F10.920 - Alcohol use, unspecified with intoxication, uncomplicated Additional Impression: Suicidal ideations ER Course Patient presents with suicidal radiation. Patient laughing and talkative here in the ER. He has a very high alcohol level. No drug use. Patient now sleep. Will reassess in the morning. It is not suicidal, we'll discharge home with his Seroquel. Patient now awake. No longer suicidal. Not homeless. We'll discharge home. Last Vital Signs Date Time Temp Pulse Resp B/P (MAP) Pulse Ox O2 Delivery O2 Flow Rate FiO2 06/14/18 00:49 98.1 78 16 148/96 98 Room Air Status: improved Disposition: HOME, SELF-CARE Condition: Stable Scripts Quetiapine Fumarate (SEROQUEL) 300 Mg Tablet 300 MG ORAL TWICE A DAY, #60 TAB Prov: Hima Larose MD 06/14/18 Referrals: NON PHYSICIAN (PCP) Additional Instructions: Abstain from alcohol. Go to rehabilitation. Follow-up with your psychiatrist on Saturday. Return if worse. Hima Larose MD Jun 14, 2018 03:41
[2018-06-14 06:59] VITALS: BP 116/90
== END 2018-06-14 07:02 | disposition home or self-care (01) ==
LOC: EDBD 00:32 → EDUNIT# 00:32 → EMR 01:34
DX: R45.851 Suicidal ideations (principal); F10.920 Alcohol use, unspecified with intoxication, uncomplicated; F32.9 Major depressive disorder, single episode, unspecified; I10 Essential (primary) hypertension
CPT/HCPCS: 36415; 80053; 80307; 80329; 85025; 99284

== ENCOUNTER 2018-12-14 14:15 | Emergency (ER) | payer OTHER ==
[~2018-12-14] VITALS: Ht 172.7 cm; Wt 81.6 kg
[2018-12-14] MEDS ORDERED: QUETIAPINE FUMA25 MG ORAL (14:24)
--- NOTE | 2018-12-14 14:27 | NUR ---
ED Nurse Note: Patient brought in by ambulace formerly [facility], patient is from home c/o chest pain, patient was on the way to [facility] for SI, but c/o chest pain crushing 7/10 and getting light headed and dizzy. patient is alert awake x4 ambulatory.
--- NOTE | 2018-12-14 14:33 | NUR ---
ED Nurse Note: Dr. Spann at bedside. patient states that he did feel SI but right now he denies. He does not have suicidal ideation at this time. patient reports his chest pain started since yesterday.
[2018-12-14 14:35] VITALS: BP 116/74
[2018-12-14] MEDS ORDERED: Aspirin Baby 81mg ORAL ONE (14:45)
--- NOTE | 2018-12-14 14:45 | Emergency Room Report ---
History of Present Illness General Chief Complaint: Chest Pain Source: Patient Present Illness HPI Disclaimer: Please note that this report is being documented using DRAGON technology. This can lead to erroneous entry secondary to incorrect interpretation by the dictating instrument. HPI: 50-year-old male with a history of hypertension, alcohol abuse, depression presents by EMS for evaluation of chest pain and suicidality. The patient states that he was recently discharged for chest pain from [facility] approximately 8 days ago. He has been chest pain-free since his admission until yesterday. He has been having intermittent chest pressure in the middle of his chest that does not radiate. He is intermittently diaphoretic but denies any nausea or vomiting. Denies pain radiation. Denies any loss of consciousness but does feel lightheaded. He originally called EMS today reporting suicidal thoughts planning to throw himself in front of a car to kill himself. Notes worsening depression over the past few weeks. Was previously taking Seroquel and unknown hypertensive but states he has been out of his medications for some time. He has lost follow-up with his psychiatry team. Per EMS, they found him awake, alert with no complaints aside from suicidality. On route to [facility] he started complaining of 7/10 crushing chest pain and lightheadedness. No interventions were performed prior to arrival. He now arrives stating that his chest pain is resolved but is concerned of it. Otherwise, he denies any recent fever, chills, blurred vision , sore throat, cough, shortness of breath, abdominal pain, vomiting, diarrhea, dysuria, rash or other changes in his health. PMH: Hypertension, alcohol abuse, depression PSH: Wrist surgery Allergies: Denies Social Hx: Regular alcohol use. Regular tobacco use. Denies drug abuse Allergies: Coded Allergies: No Known Allergies (Unverified , 03/13/14) Nursing Documentation-PMH Hx Cardiac Problems: Yes - chf Hx Hypertension: Yes History Of Psychiatric Problem: Yes - paranoid schizophrenia Review of Systems All Other Systems: negative except mentioned in HPI Physical Exam Vital Signs Date Time Temp Pulse Resp B/P (MAP) Pulse Ox O2 Delivery O2 Flow Rate FiO2 12/14/18 14:20 98.4 89 18 134/70 (91) 97 Room Air General: Awake and alert, no acute distress HEENT: NC/AT. EOMI. slightly anicteric sclera. Dry mucous membranes Neck: Supple, trachea midline Chest Wall: No tenderness, no deformity Cardiovascular: RRR. S1 and S2 normal. No murmur appreciated Resp: Normal work of breathing. No cough, wheezing or crackles appreciated Abdomen: Abdomen is soft, nondistended. Nontender Skin: Intact. No abrasions, laceration or rash over the exposed skin MSK: Normal tone and bulk. Moving all extremities. No obvious deformity. Neuro: Awake and alert. Mentating appropriately. Medical Decision Making Diagnostic Impression: Primary Impression: NSTEMI (non-ST elevated myocardial infarction) Additional Impressions: Chest pain Suicidal ideation ER Course 50-year-old male with a history of hypertension, alcohol abuse, depression, bipolar disorder presenting for evaluation of chest pain and suicidality. Patient is currently denying chest pain the states it was approximately 4/10 nonradiating feeling lightheaded en route. EKG on arrival shows sinus rhythm without acute ST changes. There are slight inferior Q waves and anterior Q waves as well as a prolonged QTC. There are no acute ischemic changes appreciated. Will start chest pain work-up with lab work, chest x-ray. Obtain records from [place]. Patient is noticed acute distress at this time. Will give aspirin. EKG Diagnostic Results EKG Time: 14:35 EP Interpretation: Normal sinus rhythm, no acute ischemia, anterior lateral Q waves, normal ax Rate: normal Rhythm: NSR Rhythm Strip Diag. Results Rhythm Strip Time: 14:35 EP Interpretation: yes Rate: 80s Rhythm: NSR Reevaluation Time: 17:13 Last Vital Signs Date Time Temp Pulse Resp B/P (MAP) Pulse Ox O2 Delivery O2 Flow Rate FiO2 12/14/18 14:20 98.4 89 18 134/70 (91) 97 Room Air Reevaluation Impression Patient chest pain is resolved. No infiltrates or other pathology seen on chest x-ray. His lab work showed positive troponin and there is no prior for comparison. Second troponin is sent and pending. In light of his story for chest pain and positive troponin the patient will require admission. I discussed with Dr. Hendrickson who is accepted the patient to transfer to [facility] for a telemetry bed admission. He will also require psychiatric clearance at that facility as he has not been evaluated by psychiatry here. I discussed the lab results, imaging results and plan for admission at [facility] with the patient. He understands and agrees with this treatment plan. Disposition: XFER SHT-TRM HOSP Condition: Stable Ronal Spann MD Dec 14, 2018 14:45
[2018-12-14 14:59] LABS: BASOPHILS % (AUTO) 1.2 % (0.0-2.0); EOSINOPHILS % (AUTO) 2.2 % (0.0-3.0); HEMATOCRIT 34.3 % (42.0-52.0); HEMOGLOBIN 10.5 G/DL (14.2-18.0); MEAN CORPUSCULAR VOLUME 85 FL (80-99); NEUTROPHILS % (AUTO) 68.6 % (45.0-75.0); PLATELET COUNT 350 K/UL (150-450); RED BLOOD COUNT 4.05 M/UL (4.70-6.10); RED CELL DISTRIBUTION WIDTH 17.9 % (11.6-14.8); WHITE BLOOD COUNT 8.7 K/UL (4.8-10.8)
[2018-12-14 15:31] LABS: ALANINE AMINOTRANSFERASE 15 U/L (12-78); ALBUMIN 2.8 G/DL (3.4-5.0); ALBUMIN/GLOBULIN RATIO 0.7 (1.0-2.7); ALKALINE PHOSPHATASE 72 U/L (46-116); ANION GAP 13 mmol/L (5-15); ASPARTATE AMINO TRANSFERASE 27 U/L (15-37); BILIRUBIN,TOTAL 0.5 MG/DL (0.2-1.0); BLOOD UREA NITROGEN 4 mg/dL (7-18); CALCIUM 8.4 MG/DL (8.5-10.1); CARBON DIOXIDE 25 MMOL/L (21-32); CHLORIDE 101 MMOL/L (98-107); CKMB 0.8 NG/ML (0.0-3.6); CREATINE KINASE 84 U/L (26-308); CREATININE 0.8 MG/DL (0.55-1.30); POTASSIUM 2.8 MMOL/L (3.5-5.1); SODIUM 139 MMOL/L (136-145)
--- NOTE | 2018-12-14 17:03 | NUR ---
ED Nurse Note: dinner provided to patient as requested. Dr. Maria Ines leal with it.
[2018-12-14 18:07] VITALS: BP 124/82
[2018-12-14 19:19] VITALS: BP 124/82
--- NOTE | 2018-12-14 19:21 | NUR ---
ED Nurse Note: patient is being transferred to [facility] with all of his belongings with ambulance personnel using ACLS protocal. patient is a/o x4 ambulatory. report was given to Caitie FLORES, break nurse. endorsed all plan of care to Caitie FLORES.
--- NOTE | 2018-12-15 12:14 | Cardiology Report ---
APPROVED REPORT EKG Measurement Heart [id number] Normal sinus rhythm Possible Anterior infarct, age undetermined Prolonged QT Abnormal ECG
--- NOTE | 2018-12-15 12:51 | Diagnostic Imaging Report ---
Indication: Chest pain Comparison: 07/31/2010 A single view chest radiograph was obtained. Findings: Cardiomediastinal appearance is within normal limits for age. The lungs are clear. Pulmonary vascularity is appropriate. The diaphragmatic contour is smooth and costophrenic angles are sharp. No pleural effusions are identified. The bones are unremarkable. Impression: No acute findings
== END 2018-12-14 19:19 | disposition short-term general hospital (02) ==
LOC: EDBD 14:15 → EDUNIT# 14:15 → EMR 16:00
DX: I21.4 Non-ST elevation (NSTEMI) myocardial infarction (principal); R07.9 Chest pain, unspecified; R45.851 Suicidal ideations; F32.9 Major depressive disorder, single episode, unspecified; F31.9 Bipolar disorder, unspecified; I11.0 Hypertensive heart disease with heart failure; I50.9 Heart failure, unspecified
CPT/HCPCS: 36415; 71045; 80053; 82550; 82553; 84484; 85025; 93005; 96365; 99285; J3480; J8499

== ENCOUNTER 2019-03-10 15:46 | Emergency (ER) | payer OTHER ==
[~2019-03-10] VITALS: Ht 170.2 cm; Wt 81.6 kg
[2019-03-10 15:44] VITALS: BP 116/76
[~2019-03-10 15:46] MED LIST changes: +NKM
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
[2019-03-10] MEDS: Sodium Chloride 550 ML IV SCH ×2 (16:11→19:25)
[2019-03-10 17:09] LABS: BASOPHILS % (AUTO) 2.1 % (0.0-2.0); EOSINOPHILS % (AUTO) 0.4 % (0.0-3.0); HEMATOCRIT 41.2 % (42.0-52.0); LYMPHOCYTES % (AUTO) 17.9 % (20.0-45.0); MEAN CORPUSCULAR VOLUME 80 FL (80-99); MONOCYTES % (AUTO) 12.7 % (1.0-10.0); PLATELET COUNT 202 K/UL (150-450); RED BLOOD COUNT 5.18 M/UL (4.70-6.10); RED CELL DISTRIBUTION WIDTH 14.7 % (11.6-14.8); WHITE BLOOD COUNT 12.9 K/UL (4.8-10.8)
[2019-03-10 17:17] LABS: ANION GAP 12 mmol/L (5-15); BLOOD UREA NITROGEN 17 mg/dL (7-18); CARBON DIOXIDE 27 MMOL/L (21-32); CHLORIDE 102 MMOL/L (98-107); CREATININE 1.2 MG/DL (0.55-1.30); POTASSIUM 4.2 MMOL/L (3.5-5.1); SODIUM 141 MMOL/L (136-145)
[2019-03-10 17:18] LABS: INR 0.9 (0.9-1.1)
[2019-03-10 17:28] LABS: ALANINE AMINOTRANSFERASE 31 U/L (12-78); ALBUMIN 3.7 G/DL (3.4-5.0); ALBUMIN/GLOBULIN RATIO 0.8 (1.0-2.7); ALKALINE PHOSPHATASE 74 U/L (46-116); ASPARTATE AMINO TRANSFERASE 25 U/L (15-37); BILIRUBIN,TOTAL 0.2 MG/DL (0.2-1.0); CREATINE KINASE 221 U/L (26-308)
--- NOTE | 2019-03-10 18:00 | NUR ---
ED Nurse Note: pt came in via [facility] from home for syncope . No fall or teuma wittnessed by son . Son helped him to ground . Son had told ems that pt was d/c'd from [facility] yesterday for cardiac ablation and has taking Alcahol shots today. Pt apeares to be intoxicated. pt placed on monitor blood and urine sent pt 's traponin elevated ermd aware.
--- NOTE | 2019-03-10 18:27 | NUR ---
HAND-OFF: Report given to Temitope FLORES.
--- NOTE | 2019-03-10 18:30 | NUR ---
ED Nurse Note: pt sleeping in room on personnel monitor nsr noted. no resp distress or cp c/o. no n/v. pt awaken with tactile stimuli, ivf infusing well. vss. awaitng further dispo by
[2019-03-10 18:39] VITALS: BP 110/72
[2019-03-10 19:35] VITALS: BP 110/72
--- NOTE | 2019-03-10 19:35 | NUR ---
ED Nurse Note: Pt combative and refusing to be transfered to [facility] against Dr Donaldson's advice. Pt attempting to pull out IV's and leave. Fully explained risks of leaving, verbalized understanding, IV's removed. Pt signed form and ambulated to lobby.
--- NOTE | 2019-03-10 19:39 | NUR ---
AMA: SEE AMA FORM.
--- NOTE | 2019-03-11 13:14 | Diagnostic Imaging Report ---
Indication: Dyspnea Comparison: 12/14/2018 A single view chest radiograph was obtained. Findings: No definite infiltrate or pulmonary vascular congestion identified. The heart is enlarged. The aorta is mildly enlarged consistent with atherosclerotic vascular disease. The bones are osteopenic. Impression: No acute disease
== END 2019-03-10 19:39 | disposition left against medical advice (07) ==
LOC: EDBD 15:46 → EMR 16:00
DX: R55 Syncope and collapse (principal); F10.10 Alcohol abuse, uncomplicated; R79.89 Other specified abnormal findings of blood chemistry; I10 Essential (primary) hypertension; F17.200 Nicotine dependence, unspecified, uncomplicated
CPT/HCPCS: 71045; 80053; 82550; 83880; 84484; 85025; 85610; 85730; 93005; G0480; Z7502; 99284

== ENCOUNTER 2019-03-29 12:23 | Emergency (ER) | payer OTHER ==
[2019-03-29] VITALS (7 sets, daily range): BP systolic 106–143; BP diastolic 77–89
[~2019-03-29] VITALS: Ht 170.2 cm; Wt 79.4 kg
--- NOTE | 2019-03-29 12:30 | NUR ---
ED Nurse Note: pt arrived to ed ra 29. per ems pt is etoh. pt denies etoh and says he has heart issues.
[2019-03-29 13:03] LABS: APPEARANCE,URINE CLEAR; BASOPHILS % (AUTO) 1.7 % (0.0-2.0); BILIRUBIN, URINE NEGATIVE (NEGATIVE); COLOR,URINE PALE YELLOW; EOSINOPHILS % (AUTO) 3.5 % (0.0-3.0); GLUCOSE, URINE (UA) NEGATIVE (NEGATIVE); HEMATOCRIT 40.7 % (42.0-52.0); HEMOGLOBIN 12.6 G/DL (14.2-18.0); KETONES,URINE NEGATIVE (NEGATIVE); LEUKOCYTE ESTERASE ,URINE NEGATIVE (NEGATIVE); LYMPHOCYTES % (AUTO) 33.1 % (20.0-45.0); MEAN CORPUSCULAR VOLUME 80 FL (80-99); MONOCYTES % (AUTO) 6.9 % (1.0-10.0); NEUTROPHILS % (AUTO) 54.8 % (45.0-75.0); NITRITE,URINE NEGATIVE (NEGATIVE); PH,URINE 6.5 (4.5-8.0); PLATELET COUNT 230 K/UL (150-450); PROTEIN,URINE NEGATIVE (NEGATIVE); RED BLOOD COUNT 5.11 M/UL (4.70-6.10); RED CELL DISTRIBUTION WIDTH 15.6 % (11.6-14.8); UROBILINOGEN,URINE NORMAL MG/DL (0.0-1.0); WHITE BLOOD COUNT 6.2 K/UL (4.8-10.8)
[2019-03-29 13:20] LABS: ANION GAP 13 mmol/L (5-15); BLOOD UREA NITROGEN 8 mg/dL (7-18); CARBON DIOXIDE 26 MMOL/L (21-32); CHLORIDE 107 MMOL/L (98-107); CREATININE 0.8 MG/DL (0.55-1.30); POTASSIUM 3.5 MMOL/L (3.5-5.1); SODIUM 145 MMOL/L (136-145)
[2019-03-29 13:23] LABS: ALANINE AMINOTRANSFERASE 22 U/L (12-78); ALBUMIN 3.3 G/DL (3.4-5.0); ALBUMIN/GLOBULIN RATIO 0.8 (1.0-2.7); ALKALINE PHOSPHATASE 82 U/L (46-116); ASPARTATE AMINO TRANSFERASE 21 U/L (15-37); BILIRUBIN,TOTAL 0.4 MG/DL (0.2-1.0)
--- NOTE | 2019-03-29 13:30 | NUR ---
ED Nurse Note: pt pulled IV site out; will reinsert new IV
--- NOTE | 2019-03-29 13:49 | NUR ---
ED Nurse Note: Received patient from Ana FLORES, patient placed on a quality assurance monitor body, vitals stable, patient is alert awake x 3, ambulatory without assistance.
--- NOTE | 2019-03-29 14:30 | NUR ---
ED Nurse Note: patient provided with meal tray, water, tolerated food, per gómez CHUNG's order.
[2019-03-29 15:26] LABS: INR 0.9 (0.9-1.1)
[2019-03-29] MEDS ORDERED: Aspirin Baby 81mg ORAL ONE (15:30)
[2019-03-29] MEDS ORDERED: Aspirin Baby 81mg ONE (15:54)
--- NOTE | 2019-03-29 16:17 | Emergency Room Report ---
History of Present Illness General Chief Complaint: Alcohol Intoxication Source: EMS (Laurie Cohn) Present Illness HPI 59-year-old male with history of NSTEMI and alcohol abuse brought in by paramedics due to alcohol intoxication. Patient enters the emergency room complaining of a 10 out of 10 chest pain without any radiation. Denies head injury, dizziness and headache. Patient appears intoxicated however speaks in full sentences. Has not taken medication for symptom relief. Denies alcohol intake and drug use. Denies palpitation, abdominal pain, nausea vomiting and other associated symptoms. Patient was recently seen at [facility] for similar symptoms and was transferred to a different facility due to NSTEMI. Patient does not appear to be compliant with follow-up with primary care physician and being seen by cane weigher helper. (Laurie Cohn) Allergies: Coded Allergies: No Known Allergies (Unverified , 03/13/14) Patient History Past Medical History: see triage record Past Surgical History: unable to obtain Pertinent Family History: unable to obtain Social History: Reports: alcohol use, drug use Reviewed Nursing Documentation: PMH: Agreed; PSxH: Agreed (Laurie Cohn) Nursing Documentation-PMH Hx Cardiac Problems: Yes - chf Hx Hypertension: Yes (Laurie Cohn) Review of Systems All Other Systems: negative except mentioned in HPI (Laurie Cohn) Physical Exam Vital Signs Date Time Temp Pulse Resp B/P (MAP) Pulse Ox O2 Delivery O2 Flow Rate FiO2 03/29/19 12:20 98.1 86 16 129/84 (99) 99 Room Air Sp02 EP Interpretation: reviewed, normal General Appearance: mild distress, other - Disheveled and intoxicated Head: normocephalic, atraumatic Eyes: bilateral eye normal inspection, bilateral eye PERRL ENT: hearing grossly normal, normal pharynx, no angioedema, normal voice Neck: full range of motion, supple, thyroid normal, no meningismus, no bony tend, supple/symm/no masses Respiratory: chest non-tender, lungs clear, normal breath sounds, no rhonchi, no respiratory distress, no retraction, no accessory muscle use, no wheezing, speaking full sentences Cardiovascular #1: regular rate, rhythm, no edema, no murmur, normal capillary refill Cardiovascular #2: 2+ carotid (R), 2+ carotid (L), 2+ radial (R), 2+ radial (L) , 2+ dorsalis pedis (R), 2+ dorsalis pedis (L) Gastrointestinal: normal bowel sounds, non tender, soft, no peritonitis, no bruit, non-distended, no guarding, no hernia, no pulsatile mass, no rebound Rectal: deferred Genitourinary: no CVA tenderness Musculoskeletal: back normal, gait/station normal, normal range of motion, non- tender, no calf tenderness Neurologic: alert, responsive, sensory intact, speech normal, no Babinski, no pronator, abnormal gait Psychiatric: no suicidal/homicidal ideation Skin: no rash Lymphatic: no adenopathy (Laurie Cohn) Medical Decision Making PA Attestation All diagnoses and treatment plans were reviewed and discussed with my supervising physician Dr. Spann (Laurie Cohn) PA Attestation I supervised and participate in the care of this patient along with JULIET Sheldon Briefly, this is a 59-year-old male history of alcohol abuse who presented for alcohol intoxication and chest pain. He has a history of NSTEMI and was seen at [facility] by me on a prior visit where he was transferred to [facility]. The patient states he left AGAINST MEDICAL ADVICE prior to receiving his cardiology evaluation. He is complaining of intermittent chest pain but is now chest pain-free. Alcohol was elevated though he is clinically sober and mentating appropriately. He is amenable to admission and cardiology work-up at this time. Troponin returned elevated again higher than previous levels. EKG was nonischemic. Stable for transfer and admission to telemetry. 1700: Patient is been accepted to [facility] by Dr. Lentz for telemetry admission and cardiac work-up. The patient states he has just a very dull sensation of pain over his chest but is in no acute distress otherwise and is improved from his initial presentation. He again states he is willing to stay for admission and cardiac evaluation this time. Stable for transfer. (Ronal Spann MD) Diagnostic Impression: Primary Impression: Elevated troponin Additional Impressions: Acute alcoholic intoxication Benzodiazepine abuse ER Course 59-year-old male with history of NSTEMI and alcohol abuse brought in by paramedics due to alcohol intoxication. Patient enters the emergency room complaining of a 10 out of 10 chest pain without any radiation. Denies head injury, dizziness and headache. Patient appears intoxicated however speaks in full sentences. Has not taken medication for symptom relief. Denies alcohol intake and drug use. Denies palpitation, abdominal pain, nausea vomiting and other associated symptoms. Patient was recently seen at [facility] for similar symptoms and was transferred to a different facility due to NSTEMI. Patient does not appear to be compliant with follow-up with primary care physician and being seen by cane weigher helper. Ddx considered but are not limited to: FL, Angina, COPD, GERD, STEMI, and STEMI , CHF, drug-induced chest pain, alcohol intoxication induced chest pain Vital signs: are WNL, pt. is afebrile H&PE are most consistent with elevated troponin, benzodiazepine abuse, alcohol intoxication ORDERS: Chest pain order set ED INTERVENTIONS: NS bolus, aspirin 81 mg, Zofran and Pepcid Patient was transferred for admission with diagnosis of elevated troponin and alcohol intoxication to at [facility] under supervision of Dr.: Spann pt stable at time of admission (Laurie Cohn) EKG Diagnostic Results Rate: normal Rhythm: NSR ST Segments: no acute changes Other Impression no acute ST changes (Laurie Cohn) Chest X-Ray Diagnostic Results Chest X-Ray Diagnostic Results : Chest X-Ray Ordered: Yes # of Views/Limited/Complete: 1 View Indication: Chest Pain EP Interpretation: Yes PA Xray: Interpretation reviewed, by supervising MD, and agrees with findings. Interpretation: no consolidation, no effusion, no pneumothorax Impression: No acute disease Electronically Signed by: Laurie Abrams PA-C (Laurie Cohn) Last Vital Signs Date Time Temp Pulse Resp B/P (MAP) Pulse Ox O2 Delivery O2 Flow Rate FiO2 03/29/19 13:53 98.1 72 21 141/84 98 Room Air (Laurie Cohn) Disposition: XFER SHT-TRM HOSP Condition: Stable Referrals: NOT CHOSEN IPA/,REFERRING (PCP) Laurie Cohn Mar 29, 2019 16:17 Ronal Spann MD Mar 29, 2019 16:49
--- NOTE | 2019-03-29 18:42 | NUR ---
[facility] called, delayed the transfer till [id number].
--- NOTE | 2019-03-29 18:53 | NUR ---
ED Nurse Note: Report given to Nancy at [facility]
--- NOTE | 2019-03-29 19:10 | NUR ---
HAND-OFF: Report given to Stone prakash.
--- NOTE | 2019-03-29 19:12 | NUR ---
ED Nurse Note: Received patient from [facility] Grider patient at no distress at this time, awaiting transfer
--- NOTE | 2019-03-29 20:00 | NUR ---
[facility] showed up and left due to unable to take patient-they are BLS. Patient needs ALS transport. New [id number]
--- NOTE | 2019-03-29 21:07 | NUR ---
ED Nurse Note: patient in bed at no distress at this time
--- NOTE | 2019-03-29 21:50 | NUR ---
ER DISCHARGE NOTE: Patient's transfer has arrived accompanied by pst supervisor and RN. patient at no distress at time of departure
--- NOTE | 2019-03-30 11:21 | Diagnostic Imaging Report ---
Indication: Chest pain Technique: One view of the chest Comparison: 03/10/2019 Findings: Again demonstrated is thoracic scoliotic deformity. The heart size is upper limits of normal. No significant interim change Impression: No acute process
== END 2019-03-29 21:50 | disposition short-term general hospital (02) ==
LOC: EDBD 12:23 → EMR 13:55
DX: F10.129 Alcohol abuse with intoxication, unspecified (principal); I25.2 Old myocardial infarction; I11.0 Hypertensive heart disease with heart failure; I50.9 Heart failure, unspecified; R79.89 Other specified abnormal findings of blood chemistry; F19.10 Other psychoactive substance abuse, uncomplicated
CPT/HCPCS: 36415; 71045; 80053; 80307; 81001; 83880; 84484; 85025; 85610; 85730; 86850; 86900; 86901; 93005; 96361; 96374; 96375; G0480; J2405; S0028; Z7502; 99285; J7030

== ENCOUNTER 2019-04-24 21:35 | Emergency (ER) | payer OTHER ==
[~2019-04-24] VITALS: Ht 185.4 cm; Wt 90.7 kg
[2019-04-24] MEDS ORDERED: Nitroglycerin 2% oint pkt TOPIC ONE (21:45)
[2019-04-24] MEDS ORDERED: Aspirin Baby 81mg ORAL ONE (21:45)
--- NOTE | 2019-04-24 21:47 | Emergency Room Report ---
History of Present Illness General Chief Complaint: Alcohol Intoxication Source: Patient, Medical Record, EMS Present Illness HPI This a 59-year-old male who is an alcoholic. He also has recent NSTEMI and was transferred to an outside hospital. He presents with a chief plan of chest pain. He said his heart beating fast. Complains of throbbing pain. Unknown duration. He called 911 from home. This is a frequent problem with him especially when he is drinking. No nausea no vomiting. No fever chills but no radiation. Nothing made it better. Nothing made it worse. Denies any other complaint. Allergies: Coded Allergies: No Known Allergies (Unverified , 03/13/14) Patient History Past Medical History: see triage record, old chart reviewed, HTN, CAD, AFib Past Surgical History: other Pertinent Family History: none Social History: Reports: alcohol use Immunizations: other Reviewed Nursing Documentation: PMH: Agreed; PSxH: Agreed Nursing Documentation-PMH Hx Cardiac Problems: Yes Hx Hypertension: Yes Review of Systems Eye: Denies: eye pain, blurred vision ENT: Denies: ear pain, nose congestion, throat swelling Respiratory: Denies: cough, shortness of breath Cardiovascular: Reports: chest pain; Denies: palpitations Gastrointestinal: Denies: abdominal pain, diarrhea, nausea, vomiting Musculoskeletal: Denies: back pain, joint pain Skin: Denies: rash Neurological: Denies: headache, numbness Endocrine: Denies: increased thirst, increased urine Hematologic/Lymphatic: Denies: easy bruising All Other Systems: negative except mentioned in HPI Physical Exam Vital Signs Date Time Temp Pulse Resp B/P (MAP) Pulse Ox O2 Delivery O2 Flow Rate FiO2 04/24/19 21:29 99.0 90 20 140/90 (107) 99 Room Air Vitals normal Sp02 EP Interpretation: reviewed, normal General Appearance: well appearing, no apparent distress, alert, other - Intoxicated Head: normocephalic, atraumatic Eyes: bilateral eye PERRL, bilateral eye EOMI ENT: hearing grossly normal, normal pharynx Neck: full range of motion, supple, no meningismus Respiratory: chest non-tender, lungs clear, normal breath sounds Cardiovascular #1: regular rate, rhythm, no murmur Gastrointestinal: normal bowel sounds, non tender, no mass, no organomegaly, no bruit, non-distended Musculoskeletal: back normal, normal range of motion, gait/station normal Psychiatric: mood/affect normal Medical Decision Making Diagnostic Impression: Primary Impression: Acute alcoholic intoxication Qualified Codes: F10.920 - Alcohol use, unspecified with intoxication, uncomplicated Additional Impression: ACS (acute coronary syndrome) ER Course Patient presents with chest pain and alcohol intoxication. His troponin is elevated. He has intermediate troponin on every visit here except for once where he had elevated troponin consistent with NSTEMI. This intermediate troponin he has baseline. Chest pain is atypical in nature. There is no radiation or exertional component. EKG showed no ischemic changes. I discussed the case with Dr. Rangel who stated that he knows of the patient. He thinks that the patient had a negative cardiac work-up before. He accepted patient for transfer to [facility]. EKG Diagnostic Results Rate: normal Rhythm: NSR ST Segments: no acute changes ASA given to the pt in ED: Yes Rhythm Strip Diag. Results EP Interpretation: yes Rate: 65 Rhythm: NSR Chest X-Ray Diagnostic Results Chest X-Ray Diagnostic Results : Chest X-Ray Ordered: Yes # of Views/Limited/Complete: 1 View Indication: Chest Pain EP Interpretation: Yes Interpretation: no consolidation, no effusion, no pneumothorax, no acute cardiopulmonary disease Impression: No acute disease Electronically Signed by: Hima Larose MD Last Vital Signs Date Time Temp Pulse Resp B/P (MAP) Pulse Ox O2 Delivery O2 Flow Rate FiO2 04/24/19 21:29 99.0 90 20 140/90 (107) 99 Room Air Status: improved Disposition: XFER SHT-TRM HOSP Condition: Stable Hima Larose MD Apr 24, 2019 21:47
--- NOTE | 2019-04-24 22:07 | Diagnostic Imaging Report ---
EXAM: XR Chest, 1 View CLINICAL HISTORY: CP TECHNIQUE: Frontal view of the chest. COMPARISON: No relevant prior studies available. FINDINGS: Lungs: Unremarkable. No consolidation. Pleural space: Unremarkable. No pneumothorax. Heart: Unremarkable. No cardiomegaly. Mediastinum: Unremarkable. Bones/joints: Unremarkable. IMPRESSION: No acute cardiopulmonary abnormality.
[2019-04-24 22:15] VITALS: BP 140/90
--- NOTE | 2019-04-24 22:17 | NUR ---
ER Nurse Note: Pt brought in by ambulance c/o chest pain that started a few hrs ago. Pt admits to drinking 2 shots of liquor; pt is slurring his speech but able to communicate. Pt able to answer questions appropriately. Pt stated 10/10 chest pain; non radiating; hx of cardiac condition. Placed on montior. IV established RT FA and infusing NS. Pt stable; ERMD seen pt. All safety measures met; will conitnue to montior.
[2019-04-24 22:22] LABS: BASOPHILS % (AUTO) 2.3 % (0.0-2.0); EOSINOPHILS % (AUTO) 3.9 % (0.0-3.0); HEMATOCRIT 38.5 % (42.0-52.0); HEMOGLOBIN 12.2 G/DL (14.2-18.0); LYMPHOCYTES % (AUTO) 33.9 % (20.0-45.0); MEAN CORPUSCULAR VOLUME 80 FL (80-99); MONOCYTES % (AUTO) 8.6 % (1.0-10.0); NEUTROPHILS % (AUTO) 51.3 % (45.0-75.0); PLATELET COUNT 193 K/UL (150-450); RED BLOOD COUNT 4.84 M/UL (4.70-6.10); RED CELL DISTRIBUTION WIDTH 14.4 % (11.6-14.8); WHITE BLOOD COUNT 4.7 K/UL (4.8-10.8)
[2019-04-24 22:46] LABS: ANION GAP 11 mmol/L (5-15); BLOOD UREA NITROGEN 7 mg/dL (7-18); CALCIUM 8.4 MG/DL (8.5-10.1); CARBON DIOXIDE 27 MMOL/L (21-32); CHLORIDE 104 MMOL/L (98-107); CREATININE 0.8 MG/DL (0.55-1.30); POTASSIUM 5.1 MMOL/L (3.5-5.1); SODIUM 141 MMOL/L (136-145)
[2019-04-24 22:58] LABS: ALANINE AMINOTRANSFERASE 30 U/L (12-78); ALBUMIN 3.4 G/DL (3.4-5.0); ALBUMIN/GLOBULIN RATIO 0.7 (1.0-2.7); ALKALINE PHOSPHATASE 77 U/L (46-116); ASPARTATE AMINO TRANSFERASE 58 U/L (15-37); BILIRUBIN,TOTAL 0.5 MG/DL (0.2-1.0)
[2019-04-24] MEDS ORDERED: Enoxaparin 100mg Inj SUBQ ONE (23:15)
[2019-04-24 23:45] LABS: APPEARANCE,URINE CLEAR; BILIRUBIN, URINE NEGATIVE (NEGATIVE); GLUCOSE, URINE (UA) NEGATIVE (NEGATIVE); KETONES,URINE NEGATIVE (NEGATIVE); LEUKOCYTE ESTERASE ,URINE NEGATIVE (NEGATIVE); NITRITE,URINE NEGATIVE (NEGATIVE); PH,URINE 6.5 (4.5-8.0); PROTEIN,URINE NEGATIVE (NEGATIVE); UROBILINOGEN,URINE 1 MG/DL (0.0-1.0)
[2019-04-24 23:56] LABS: COLOR,URINE YELLOW
--- NOTE | 2019-04-25 | NUR ---
ER Nurse Note: Pt agaitated, getting out of bed, pacing in room. Explained to pt the risks of falls and told pt to sit in a chair or lay in bed. Pt yelled "You can't tell me what to do!" and forcefully took off the cords on the cardiac montior and walked to the nurse station. Pt was confrontational when speaking with MD and charge nurse. Pt was given verbal warnings, juice, sandwich to de-escalate pt behavior. Pt pacing back and forth in room. Pt stated " I am going to leave be you have to provide me with a ride. I am going to [employer] where my niece works and get treated there." No falls, no dizziness showen, VSS.
[2019-04-25 00:55] VITALS: BP 136/78
[2019-04-25 01:10] VITALS: BP 136/78
--- NOTE | 2019-04-25 01:10 | NUR ---
ER Nurse Note: Report given to MARK Hanks for continuity of care. Called 5 times and left a voicemail for a call back. Pt stable, no signs of distress, VSS, RA. Pt ambulatory, skin intact. SLIV RT FA, patent. All safety measures met; left with all belongings.
== END 2019-04-25 01:10 | disposition short-term general hospital (02) ==
LOC: EDBD 21:35 → EMR 21:47
DX: F10.129 Alcohol abuse with intoxication, unspecified (principal); I24.9 Acute ischemic heart disease, unspecified; I11.9 Hypertensive heart disease without heart failure; I25.2 Old myocardial infarction
CPT/HCPCS: 36415; 71045; 80053; 81003; 83880; 84484; 85025; 93005; 96361; 96374; G0480; J1650; Z7502; 99285